=== PATIENT | female | born 1955 | race Asian ===

== ENCOUNTER 2023-12-07 07:14 | Day surgery (SDC) | payer OTHER, MEDICARE ==
[~2023-12-07] VITALS: Ht 152.4 cm; Wt 36.3 kg
[2023-12-07] MEDS ORDERED: MEPERIDINE 100 MG INJ. 100 MG/ML VIAL ONE (07:46)
[2023-12-07] MEDS ORDERED: MIDAZOLAM HCL 5 MG/5 ML VIAL ONE (07:46)
[2023-12-07 13:14] VITALS: O2SAT 100
[2023-12-07 14:59] VITALS: BP_SYST 102; PULSE 58; RESP 17
== END 2023-12-07 11:56 | disposition home or self-care (01) ==
LOC: SDS 07:14 → SMU 07:23 → SDS 11:56
PROVIDERS: ATTEND Internal Medicine Gastroenterology
DX: R19.4 Change in bowel habit (principal); K29.80 Duodenitis without bleeding; K29.30 Chronic superficial gastritis without bleeding; K31.A0 Gastric intestinal metaplasia, unspecified; R19.7 Diarrhea, unspecified; R63.4 Abnormal weight loss; D64.9 Anemia, unspecified; K64.8 Other hemorrhoids; K64.4 Residual hemorrhoidal skin tags; K44.9 Diaphragmatic hernia without obstruction or gangrene; Z68.1 Body mass index [BMI] 19.9 or less, adult; I10 Essential (primary) hypertension; E11.9 Type 2 diabetes mellitus without complications; K21.9 Gastro-esophageal reflux disease without esophagitis; Z94.0 Kidney transplant status; Z79.899 Other long term (current) drug therapy
CPT/HCPCS: 45380; 43239; 99152; 87081; 36415; 88305; 88312; 88313; 99153; G0378; J2250; J2175